=== PATIENT | male | born 1930 | race Caucasian/White ===

== ENCOUNTER → 2017-04-02 | Outpatient (CLI) | payer MEDICARE ==
[2017-04-02 08:54] LABS: HCT 49.9 % (39.0-53.0); HGB 16.4 gm/dL (13.0-17.5); MCH 28.3 pg (25.0-35.0); MCHC 32.9 g/dL (31.0-37.0); Mean Platelet Volume 8.3; Platelet Count 188 k/uL (150-450); RBC 5.81 m/uL (4.30-5.90); RDW 13.2 % (11.5-15.5); WBC 6.2 k/uL (3.8-10.6)
[2017-04-02 10:39] LABS: ALT 23 U/L (21-72); AST 25 U/L (17-59); Albumin 4.3 g/dL (3.5-5.0); Alkaline Phosphatase 55 U/L (38-126); Anion Gap 12 mmol/L; Blood Urea Nitrogen 21 mg/dL (9-20); Calcium 9.3 mg/dL (8.4-10.2); Carbon Dioxide 28 mmol/L (22-30); Chloride 102 mmol/L (98-107); Cholesterol 163 mg/dL (<200); Glucose 100 mg/dL (74-99); HDL Cholesterol 48 mg/dL (40-60); LDL Cholesterol,Calculated 102 mg/dL (0-99); Potassium 3.8 mmol/L (3.5-5.1); Sodium 142 mmol/L (137-145); Total Bilirubin 0.8 mg/dL (0.2-1.3); Triglycerides 66 mg/dL (<150)
[2017-04-02 10:52] LABS: T4, Free (Free Thyroxine) 0.96 ng/dL (0.78-2.19)
[2017-04-02 11:09] LABS: Prostate Specific Antigen <0.10 ng/mL (0.00-4.00)
== END | disposition home or self-care (01) ==
LOC: LABWHC1 08:03
PROVIDERS: ATTEND Internal Medicine
DX: Z00.00 Encounter for general adult medical examination without abnormal findings (principal); I11.9 Hypertensive heart disease without heart failure; E78.2 Mixed hyperlipidemia; C61 Malignant neoplasm of prostate; K21.0 Gastro-esophageal reflux disease with esophagitis
CPT/HCPCS: 36415; 80053; 80061; 84153; 84439; 84443; 85027

== ENCOUNTER 2017-09-10 17:39 | Emergency (ER) | payer MEDICARE ==
[2017-09-10 17:45] VITALS: TEMP 97.7
[2017-09-10] MEDS ORDERED: ONDANSETRON 4 MG/2 ML VIAL IVP STA (17:53)
[2017-09-10] MEDS ORDERED: SODIUM CHLORIDE 0.9% 1,000 ML IV STA (17:53)
[2017-09-10] MEDS ORDERED: FAMOTIDINE 20 MG/2 ML VIAL IV STA (17:54)
--- NOTE | 2017-09-10 17:56 | ED ---
General Adult HPI - General Chief complaint: Nausea/Vomiting/Diarrhea Stated complaint: vomiting, weakness Time Seen by Provider: 09/10/17 17:49 Source: patient, RN notes reviewed, Caregiver Mode of arrival: wheelchair Limitations: no limitations - History of Present Illness Initial comments: Patient is a pleasant 86-year-old male presenting to the emergency Department with nausea vomiting and diarrhea. Onset of symptoms was late last night/early this morning. Patient has nausea and has vomited approximately 6 times. Patient did have a few episodes of diarrhea that has now resolved. No abdominal pain. No fevers. Patient states he does feel somewhat lightheaded and fatigued. - Related Data Home Medications Medication Instructions Recorded Confirmed Simvastatin [Zocor] 40 mg PO HS 01/07/14 09/10/17 Triamterene-Hctz 37.5-25Mg 1 each PO DAILY 01/07/14 09/10/17 [Dyazide 37.5-25 Capsule] amLODIPine [Norvasc] 5 mg PO DAILY 01/07/14 09/10/17 Aspirin EC [Ecotrin Low Dose] 81 mg PO DAILY 09/10/17 09/10/17 Naproxen Sodium [Aleve] 220 mg PO DAILY 09/10/17 09/10/17 Previous Rx's Medication Instructions Recorded Ondansetron Odt [Zofran Odt] 4 mg PO Q8HR PRN #10 tab 09/10/17 Allergies Allergy/AdvReac Type Severity Reaction Status Date / Time No Known Allergies Allergy Verified 09/10/17 17:59 Review of Systems ROS Statement: Those systems with pertinent positive or pertinent negative responses have been documented in the HPI. ROS Other: All systems not noted in ROS Statement are negative. Constitutional: Denies: fever Eyes: Denies: eye pain ENT: Denies: ear pain Respiratory: Denies: cough Cardiovascular: Denies: chest pain Endocrine: Reports: fatigue Gastrointestinal: Reports: nausea, vomiting, diarrhea. Denies: abdominal pain Genitourinary: Denies: dysuria Musculoskeletal: Denies: back pain Skin: Denies: rash Neurological: Denies: headache Past Medical History Past Medical History: Hyperlipidemia, Hypertension Additional Past Medical History / Comment(s): Prostate CA History of Any Multi-Drug Resistant Organisms: Unobtainable Past Surgical History: No Surgical Hx Reported Past Psychological History: No Psychological Hx Reported Smoking Status: Never smoker Past Alcohol Use History: Daily Past Drug Use History: None Reported General Exam Limitations: no limitations General appearance: alert, in no apparent distress Head exam: Present: atraumatic Eye exam: Present: normal appearance, PERRL ENT exam: Present: normal oropharynx Neck exam: Present: normal inspection Respiratory exam: Present: normal lung sounds bilaterally Cardiovascular Exam: Present: irregular rhythm GI/Abdominal exam: Present: soft. Absent: tenderness Extremities exam: Present: normal inspection. Absent: pedal edema, calf tenderness Back exam: Present: normal inspection Neurological exam: Present: alert Psychiatric exam: Present: normal affect, normal mood Skin exam: Present: normal color Course Vital Signs 09/10/17 09/10/17 17:43 19:01 Temperature 97.7 F Pulse Rate 54 L 75 Respiratory 20 18 Rate Blood Pressure 187/103 181/93 O2 Sat by Pulse 97 98 Oximetry EKG Findings - EKG Comments: EKG Findings:: Sinus rhythm with frequent PVCs. Rate 78. [place] 182. QRS 94. QT 436. QTc 497. Left axis. LVH. No acute ST change. Medical Decision Making - Medical Decision Making Patient reevaluated and does feel much better. Patient is comfortable with discharge home. - Lab Data Result diagrams: 09/10/17 18:05 09/10/17 18:05 Lab Results 09/10/17 09/10/17 09/10/17 Range/Units 18:05 18:05 18:55 WBC 9.8 (3.8-10.6) k/uL RBC 6.15 H (4.30-5.90) m/uL Hgb 17.3 (13.0-17.5) gm/dL Hct 51.2 (39.0-53.0) % MCV 83.2 (80.0-100.0) fL MCH 28.2 (25.0-35.0) pg MCHC 33.8 (31.0-37.0) g/dL RDW 13.8 (11.5-15.5) % Plt Count 197 (150-450) k/uL Neutrophils % 84 % Lymphocytes % 11 % Monocytes % 4 % Eosinophils % 0 % Basophils % 0 % Neutrophils # 8.2 H (1.3-7.7) k/uL Lymphocytes # 1.1 (1.0-4.8) k/uL Monocytes # 0.4 (0-1.0) k/uL Eosinophils # 0.0 (0-0.7) k/uL Basophils # 0.0 (0-0.2) k/uL Sodium 141 (137-145) mmol/L Potassium 3.8 (3.5-5.1) mmol/L Chloride 103 (98-107) mmol/L Carbon Dioxide 23 (22-30) mmol/L Anion Gap 15 mmol/L BUN 26 H (9-20) mg/dL Creatinine 0.97 (0.66-1.25) mg/dL Est GFR (CKD-EPI)AfAm 83 (>60 ml/min/1.73 sqM) Est GFR (CKD-EPI)NonAf 72 (>60 ml/min/1.73 sqM) Glucose 134 H (74-99) mg/dL Calcium 9.5 (8.4-10.2) mg/dL Total Bilirubin 1.0 (0.2-1.3) mg/dL AST 28 (17-59) U/L ALT 32 (21-72) U/L Alkaline Phosphatase 54 (38-126) U/L Total Protein 7.2 (6.3-8.2) g/dL Albumin 4.6 (3.5-5.0) g/dL Urine Color Yellow Urine Appearance Clear (Clear) Urine pH 5.5 (5.0-8.0) Ur Specific [place] 1.021 (1.001-1.035) Urine Protein 1+ H (Negative) Urine Glucose (UA) Negative (Negative) Urine Blood Small H (Negative) Urine Nitrite Negative (Negative) Urine Bilirubin Negative (Negative) Urine Urobilinogen <2.0 (<2.0) mg/dL Ur Leukocyte Esterase Negative (Negative) Urine RBC 2 (0-5) /hpf Urine Bacteria Rare H (None) /hpf Urine Mucus Rare H (None) /hpf Disposition Clinical Impression: Vomiting Disposition: HOME SELF-CARE Condition: Stable Instructions: Acute Nausea and Vomiting (ED), Acute Diarrhea (ED) Additional Instructions: Please do follow-up with primary care physician in the next couple of days for recheck. Return for not tolerating fluids, uncontrolled vomiting, fevers, abdominal pain, worsening symptoms or other concerns. Prescriptions: Ondansetron Odt [Zofran Odt] 4 mg PO Q8HR PRN #10 tab PRN Reason: Nausea Is patient prescribed a controlled substance at d/c from ED?: No Referrals: Johan Zazueta MD [Primary Care Provider] - 1-2 days Time of Disposition: 19:27
[2017-09-10 18:29] LABS: Albumin 4.6 g/dL (3.5-5.0); Calcium 9.5 mg/dL (8.4-10.2); Potassium 3.8 mmol/L (3.5-5.1); Total Protein 7.2 g/dL (6.3-8.2)
[2017-09-10 18:31] LABS: Basophils % (A) 0 %; Eosinophils % (A) 0 %; HCT 51.2 % (39.0-53.0); HGB 17.3 gm/dL (13.0-17.5); Lymphocytes # (A) 1.1 k/uL (1.0-4.8); Lymphocytes % (A) 11 %; MCH 28.2 pg (25.0-35.0); MCHC 33.8 g/dL (31.0-37.0); MCV 83.2 fL (80.0-100.0); Mean Platelet Volume 8.4; Monocytes # (A) 0.4 k/uL (0-1.0); Monocytes % (A) 4 %; Neutrophils # (A) 8.2 k/uL (1.3-7.7); Neutrophils % (A) 84 %; Platelet Count 197 k/uL (150-450); RBC 6.15 m/uL (4.30-5.90); RDW 13.8 % (11.5-15.5); WBC 9.8 k/uL (3.8-10.6)
[2017-09-10 19:05] VITALS: BP 181/93; PULSE 75; RESP 18
[2017-09-10 19:14] LABS: Appearance,Urine Clear (Clear); Bacteria,Urine Rare /hpf; Bilirubin,Urine Negative (Negative); Blood,Urine Small (Negative); Color,Urine Yellow; Glucose,Urine (UA) Negative (Negative); Ketones,Urine 2+ (Negative); Leukocyte Esterase,Urine Negative (Negative); Mucus,Urine Rare /hpf; Nitrite,Urine Negative (Negative); PH, Urine 5.5 (5.0-8.0); Protein,Urine 1+ (Negative); RBC,Urine 2 /hpf (0-5); Specific Gravity,Urine 1.021 (1.001-1.035); Urobilinogen,Urine <2.0 mg/dL (<2.0)
== END 2017-09-10 19:44 | disposition home or self-care (01) ==
LOC: EC 17:39
DX: R11.2 Nausea with vomiting, unspecified (principal); R53.1 Weakness; R19.7 Diarrhea, unspecified; E78.5 Hyperlipidemia, unspecified; I10 Essential (primary) hypertension; Z85.46 Personal history of malignant neoplasm of prostate; Z79.1 Long term (current) use of non-steroidal anti-inflammatories (NSAID); Z79.82 Long term (current) use of aspirin; Z79.899 Other long term (current) drug therapy
CPT/HCPCS: 36415; 93005; 80053; 85025; 81001; 99285; 96374; 96375; 96361; J2405

== ENCOUNTER → 2018-07-18 | Outpatient (CLI) | payer MEDICARE ==
[2018-07-18 08:21] LABS: HCT 50.5 % (39.0-53.0); HGB 16.6 gm/dL (13.0-17.5); MCH 27.9 pg (25.0-35.0); MCHC 32.9 g/dL (31.0-37.0); Mean Platelet Volume 7.9; Platelet Count 217 k/uL (150-450); RBC 5.94 m/uL (4.30-5.90); RDW 14.5 % (11.5-15.5); WBC 7.2 k/uL (3.8-10.6)
[2018-07-18 16:05] LABS: Albumin 4.5 g/dL (3.80-4.90); Albumin/Globulin Ratio 2.25 (1.60-3.17); Anion Gap 8.6 mmol/L (4.00-12.00); Calcium 9.3 mg/dL (8.7-10.3); Carbon Dioxide 28.4 mmol/L (21.6-31.8); LDL Cholesterol,Calculated 108.8 mg/dL (0.0-131.0); Potassium 3.5 mmol/L (3.5-5.5); Total Bilirubin 0.8 mg/dL (0.2-1.2); Total Protein 6.5 g/dL (6.2-8.2); VLDL Calculation 15.2 mg/dL (5.00-40.00)
== END ==
LOC: LABWHC1 07:15
PROVIDERS: ATTEND Internal Medicine
DX: Z00.00 Encounter for general adult medical examination without abnormal findings (principal); I11.9 Hypertensive heart disease without heart failure; E78.2 Mixed hyperlipidemia; C61 Malignant neoplasm of prostate; K21.0 Gastro-esophageal reflux disease with esophagitis
CPT/HCPCS: 36415; 80053; 80061; 82272; 84153; 84439; 84443; 85027

== ENCOUNTER → 2019-02-17 | Outpatient (CLI) | payer MEDICARE ==
[2019-02-17 13:01] LABS: Basophils # (A) 0.1 k/uL (0-0.2); Basophils % (A) 1 %; Eosinophils # (A) 0.3 k/uL (0-0.7); Eosinophils % (A) 3 %; HCT 48.1 % (39.0-53.0); HGB 16.5 gm/dL (13.0-17.5); Lymphocytes # (A) 1.4 k/uL (1.0-4.8); Lymphocytes % (A) 18 %; MCH 29.3 pg (25.0-35.0); MCHC 34.4 g/dL (31.0-37.0); MCV 85.2 fL (80.0-100.0); Mean Platelet Volume 7.9; Monocytes # (A) 0.4 k/uL (0-1.0); Monocytes % (A) 5 %; Neutrophils # (A) 5.6 k/uL (1.3-7.7); Neutrophils % (A) 70 %; Platelet Count 243 k/uL (150-450); RBC 5.65 m/uL (4.30-5.90); RDW 12.6 % (11.5-15.5); WBC 7.9 k/uL (3.8-10.6)
--- NOTE | 2019-02-17 13:21 | XR ---
EXAMINATION TYPE: XR chest 2V DATE OF EXAM: 02/17/2019 COMPARISON: Chest x-ray January 31, 2016. HISTORY: Cough rule out bronchitis. TECHNIQUE: Frontal and lateral views of the chest are obtained. FINDINGS: There is new subtle perihilar peribronchial cuffing. Elevated and eventrated anterior aspe ct right hemidiaphragm redemonstrated. There is no focal air space opacity, pleural effusion, or pneu mothorax seen. The cardiac silhouette size is stable and mildly enlarged with atherosclerotic aorta. Advanced degenerative change left glenohumeral joint is again seen. IMPRESSION: Persistent mild cardiomegaly with new central perihilar peribronchial cuffing consistent with reactive airway disease possibly from a viral bronchiolitis.
== END | disposition home or self-care (01) ==
LOC: LABWHC1 12:10
PROVIDERS: ATTEND Internal Medicine
DX: I51.7 Cardiomegaly (principal); J06.9 Acute upper respiratory infection, unspecified
CPT/HCPCS: 36415; 71046; 85025

== ENCOUNTER → 2019-05-13 | Outpatient (CLI) | payer MEDICARE ==
--- NOTE | 2019-05-13 13:25 | XR ---
EXAMINATION TYPE: XR foot complete LT DATE OF EXAM: 05/13/2019 COMPARISON: NONE HISTORY: Pain TECHNIQUE: Three views are submitted. FINDINGS: The osseous structures are intact. There is no acute fracture or dislocation. Severe arthropathy o f the first MTP joint. There is destructive change of the distal phalanx of the third digit. Hammerto e deformities are seen. Hypertrophic changes involving the base of the fifth metatarsal. Soft tissue edema and vascular calcifications noted.. IMPRESSION: 1. No acute fracture or dislocation. If symptoms persist, follow-up exam in 7 to 10 days could be ob tained. 2. Destructive change distal phalanx third digit. Correlate for cellulitis with osteomyelitis. Otherw ise consider neoplasm..
== END | disposition home or self-care (01) ==
LOC: RADXRMAIN 12:58
PROVIDERS: ATTEND Podiatrist Foot Surgery
DX: M24.875 Other specific joint derangements left foot, not elsewhere classified (principal)

== ENCOUNTER → 2019-06-04 | Outpatient (CLI) | payer MEDICARE ==
[2019-06-04 09:10] LABS: Basophils # (A) 0.1 k/uL (0-0.2); Basophils % (A) 1 %; Eosinophils # (A) 0.2 k/uL (0-0.7); Eosinophils % (A) 3 %; HCT 49.4 % (39.0-53.0); HGB 16.4 gm/dL (13.0-17.5); Lymphocytes # (A) 1.8 k/uL (1.0-4.8); Lymphocytes % (A) 25 %; MCH 28.7 pg (25.0-35.0); MCHC 33.2 g/dL (31.0-37.0); MCV 86.5 fL (80.0-100.0); Mean Platelet Volume 8.2; Monocytes # (A) 0.4 k/uL (0-1.0); Monocytes % (A) 6 %; Neutrophils # (A) 4.5 k/uL (1.3-7.7); Neutrophils % (A) 62 %; Platelet Count 242 k/uL (150-450); RBC 5.71 m/uL (4.30-5.90); RDW 13.4 % (11.5-15.5); WBC 7.2 k/uL (3.8-10.6)
[2019-06-04 10:25] LABS: Erythrocyte Sedimentation Rate 2 mm/hr (0-15)
[2019-06-04 17:25] LABS: ALT 20 U/L (10-49); AST 25 U/L (14-35); Albumin/Globulin Ratio 1.83 (1.60-3.17); Alkaline Phosphatase 59 U/L (41-126); BUN/Creat Ratio 17.86 Ratio (12.00-20.00); C Reactive Protein <0.4 mg/dL (0.0-0.8); Calcium 9.4 mg/dL (8.7-10.3); Carbon Dioxide 26.4 mmol/L (21.6-31.8); Chloride 102 mmol/L (96-109); Chol/HDL Ratio 4.54; Cholesterol 186 mg/dL (0-200); Creatine Kinase 117 U/L (35-257); Globulin 2.4 g/dL (1.6-3.3); Glucose 94 mg/dL (70-110); LDL Cholesterol,Calculated 129.2 mg/dL (0.0-131.0); Non-African American GFR(CKD) 44.9 (60.0-200.0); Phosphorus 3.8 mg/dL (2.4-5.1); Potassium 4.1 mmol/L (3.5-5.5); Sodium 139 mmol/L (135-145); Total Bilirubin 0.8 mg/dL (0.3-1.2); Total Protein 6.8 g/dL (6.2-8.2)
== END | disposition home or self-care (01) ==
LOC: LABWHC1 08:17
PROVIDERS: ATTEND Internal Medicine
DX: I10 Essential (primary) hypertension (principal); J44.9 Chronic obstructive pulmonary disease, unspecified; N40.0 Benign prostatic hyperplasia without lower urinary tract symptoms; E87.8 Other disorders of electrolyte and fluid balance, not elsewhere classified; E78.5 Hyperlipidemia, unspecified; D64.9 Anemia, unspecified; E55.9 Vitamin D deficiency, unspecified
CPT/HCPCS: 36415; 80053; 80061; 82306; 82550; 83735; 84100; 84153; 85025; 85652; 86140

== ENCOUNTER → 2020-06-06 | Outpatient (CLI) | payer MEDICARE ==
[2020-06-06 16:43] LABS: Basophils # (A) 0.04 X 10*3/uL (0.00-0.10); Basophils % (A) 0.6 %; Eosinophils # (A) 0.37 X 10*3/uL (0.04-0.35); Eosinophils % (A) 5.3 %; HCT 49.9 % (39.6-50.0); HGB 16.1 g/dL (13.0-17.0); Lymphocytes # (A) 1.63 X 10*3/uL (0.90-5.00); Lymphocytes % (A) 23.5 %; MCH 28.8 pg (27.0-32.0); MCHC 32.3 g/dL (32.0-37.0); MCV 89.1 fL (80.0-97.0); Mean Platelet Volume 11.4 fL (9.5-12.2); Monocytes # (A) 0.54 X 10*3/uL (0.20-1.00); Monocytes % (A) 7.8 %; Neutrophils # (A) 4.33 X 10*3/uL (1.80-7.70); Neutrophils % (A) 62.5 %; Platelet Count 226 X 10*3/uL (140-440); RDW 13.6 % (11.5-14.5); WBC 6.93 X 10*3/uL (4.50-10.00)
[2020-06-06 17:51] LABS: Erythrocyte Sedimentation Rate 2 mm/Hr (0-20)
[2020-06-06 21:25] LABS: ALT 18 U/L (10-49); AST 26 U/L (14-35); African American GFR (CKD) 62.2 (60.0-200.0); Alkaline Phosphatase 50 U/L (41-126); BUN/Creat Ratio 24.17 Ratio (12.00-20.00); C Reactive Protein <0.4 mg/dL (0.0-0.8); Calcium 9.4 mg/dL (8.7-10.3); Carbon Dioxide 27.3 mmol/L (21.6-31.8); Chloride 107 mmol/L (96-109); Chol/HDL Ratio 3.88; Cholesterol 163 mg/dL (0-200); Creatine Kinase 213 U/L (35-257); Glucose 110 mg/dL (70-110); LDL Cholesterol,Calculated 107.2 mg/dL (0.0-131.0); Magnesium 2.2 mg/dL (1.5-2.4); Non-African American GFR(CKD) 53.7 (60.0-200.0); Phosphorus 3.3 mg/dL (2.4-5.1); Potassium 4.4 mmol/L (3.5-5.5); Prostate Specific Antigen <0.1 ng/mL (0.0-6.5); Sodium 140 mmol/L (135-145); Total Bilirubin 0.6 mg/dL (0.3-1.2); Total Protein 6.6 g/dL (6.2-8.2)
== END | disposition home or self-care (01) ==
LOC: LABWHC1 08:02
PROVIDERS: ATTEND Internal Medicine
DX: N40.0 Benign prostatic hyperplasia without lower urinary tract symptoms (principal); E78.5 Hyperlipidemia, unspecified; E21.3 Hyperparathyroidism, unspecified; E03.9 Hypothyroidism, unspecified; I12.9 Hypertensive chronic kidney disease with stage 1 through stage 4 chronic kidney disease, or unspecified chronic kidney disease; N18.30 Chronic kidney disease, stage 3 unspecified; M81.0 Age-related osteoporosis without current pathological fracture
CPT/HCPCS: 36415; 80053; 80061; 82272; 82550; 83735; 83970; 84100; 84153; 84443; 85025; 85652; 86140

== ENCOUNTER 2020-12-17 09:31 | Emergency (ER) | payer MEDICARE ==
[2020-12-17 09:43] VITALS: TEMP 99.2
[2020-12-17] MEDS ORDERED: SODIUM CHLORIDE 0.9% 500 ML 500 ML IV STA (10:33)
[2020-12-17] MEDS ORDERED: METOCLOPRAMIDE 5 MG/ML 2 ML VIAL IVP STA (10:34)
[2020-12-17 10:57] LABS: Basophils % (A) 0 %; Eosinophils # (A) 0.1 k/uL (0-0.7); Eosinophils % (A) 1 %; HCT 45.3 % (39.0-53.0); HGB 15.3 gm/dL (13.0-17.5); Lymphocytes # (A) 1.1 k/uL (1.0-4.8); Lymphocytes % (A) 11 %; MCH 29.6 pg (25.0-35.0); MCHC 33.8 g/dL (31.0-37.0); MCV 87.7 fL (80.0-100.0); Mean Platelet Volume 7.9; Monocytes # (A) 0.5 k/uL (0-1.0); Monocytes % (A) 5 %; Neutrophils # (A) 7.9 k/uL (1.3-7.7); Neutrophils % (A) 82 %; Platelet Count 238 k/uL (150-450); RBC 5.17 m/uL (4.30-5.90); RDW 12.4 % (11.5-15.5); WBC 9.7 k/uL (3.8-10.6)
[2020-12-17 11:10] LABS: INR 1.1 (<1.2); Prothrombin Time 11.3 sec (9.0-12.0)
[2020-12-17 11:12] LABS: Calcium 9.5 mg/dL (8.4-10.2); Potassium 3.7 mmol/L (3.5-5.1); Total Protein 6.7 g/dL (6.3-8.2)
[2020-12-17 11:32] LABS: Appearance,Urine Clear (Clear); Bilirubin,Urine Negative (Negative); Blood,Urine Negative (Negative); Color,Urine Yellow; Glucose,Urine (UA) Negative (Negative); Ketones,Urine Negative (Negative); Leukocyte Esterase,Urine Negative (Negative); Nitrite,Urine Negative (Negative); PH, Urine 5.5 (5.0-8.0); Protein,Urine Trace (Negative); Specific Gravity,Urine 1.024 (1.001-1.035); Urobilinogen,Urine <2.0 mg/dL (<2.0)
--- NOTE | 2020-12-17 11:41 | ED ---
Dizziness HPI - General Chief Complaint: Dizziness Stated Complaint: dizziness, vomiting Time Seen by Provider: 12/17/20 10:00 Source: patient, RN notes reviewed, old records reviewed Mode of arrival: ambulatory Limitations: no limitations - History of Present Illness Initial Comments: Patient is an 89-year-old male with history of hypertension, presenting to emergency Department with complaints of lightheadedness as well as nausea and vomiting for the past 2 days. Patient states that he receive the flu vaccine on Saturday, 6 days ago, and then a few days ago started having some lightheadedness or dizziness when he is standing. He states when he is laying down he feels fine. This has been continuous and less he is laying down. He denies any chest pain or shortness of breath, no fevers or chills. He has also been having some nausea and vomiting over the past 2 days, unable to tolerate any foods. He is able to keep down water. He denies any abdominal pain, no dysuria or hematuria. He denies any surgical abdominal history. Patient denies history of vertigo. He has no further complaints at this time. His vital signs are stable upon arrival. - Related Data Home Medications Medication Instructions Recorded Confirmed Simvastatin [Zocor] 40 mg PO HS 01/07/14 09/10/17 Triamterene-Hctz 37.5-25Mg 1 each PO DAILY 01/07/14 09/10/17 [Dyazide 37.5-25 Capsule] amLODIPine [Norvasc] 5 mg PO DAILY 01/07/14 09/10/17 Aspirin EC [Ecotrin Low Dose] 81 mg PO DAILY 09/10/17 09/10/17 Naproxen Sodium [Aleve] 220 mg PO DAILY 09/10/17 09/10/17 Previous Rx's Medication Instructions Recorded Ondansetron Odt [Zofran Odt] 4 mg PO Q8HR PRN #10 tab 09/10/17 Ondansetron Odt [Zofran Odt] 4 mg PO Q8HR PRN #10 tab 12/17/20 Allergies Allergy/AdvReac Type Severity Reaction Status Date / Time No Known Allergies Allergy Verified 09/10/17 17:59 Review of Systems ROS Statement: Those systems with pertinent positive or pertinent negative responses have been documented in the HPI. ROS Other: All systems not noted in ROS Statement are negative. Past Medical History Past Medical History: Hyperlipidemia, Hypertension Additional Past Medical History / Comment(s): Prostate CA History of Any Multi-Drug Resistant Organisms: Unobtainable Past Surgical History: No Surgical Hx Reported Past Psychological History: No Psychological Hx Reported Smoking Status: Never smoker Past Alcohol Use History: Daily Past Drug Use History: None Reported General Exam - General Exam Comments Initial Comments: GENERAL: Patient is well-developed and well-nourished. Patient is nontoxic and in no acute distress. HEAD: Atraumatic, normocephalic. EYES: Pupils equal round and reactive to light, extraocular movements intact, sclera anicteric, conjunctiva are normal. Eyelids were unremarkable. ENT: TMs normal, nares patent, oropharynx clear without exudates. Moist mucous membranes. NECK: Normal range of motion, supple without lymphadenopathy or JVD. LUNGS: Unlabored respirations. Breath sounds clear to auscultation bilaterally and equal. No wheezes rales or rhonchi. HEART: Regular rate and rhythm without murmurs, rubs or gallops. ABDOMEN: Soft, nontender, normoactive bowel sounds. No guarding, no rebound. No masses appreciated. : Deferred MUSCULOSKELETAL: Normal extremities with adequate strength and normal range of motion, no pitting or edema. No clubbing or cyanosis. NEUROLOGICAL: Patient is alert and oriented x 3. Motor and sensory are also intact. Cranial nerves II through XII grossly intact. Symmetrical smile. Normal speech, normal gait. PSYCH: Normal mood, normal affect. SKIN: Warm, Dry, normal turgor, no rashes or lesions noted. Limitations: no limitations Course Vital Signs 12/17/20 12/17/20 12/17/20 09:40 11:45 12:50 Temperature 99.2 F Pulse Rate 82 70 80 Respiratory 18 16 16 Rate Blood Pressure 169/86 167/91 157/80 O2 Sat by Pulse 98 98 98 Oximetry EKG Findings - EKG Comments: EKG Findings:: Normal sinus rhythm, possible left atrial enlargement, left axis deviation, no signs of an acute process. Ventricular rate 72, IN interval 174, QTC 404. Medical Decision Making - Medical Decision Making Patient is an 89-year-old male with history of hypertension, presenting with dizziness, nausea and vomiting over the last 2 days. No chest pain, no abdominal pains, no shortness of breath. His vital signs are stable, his exam is unremarkable. He is a healthy 89-year-old. EKG reveals no acute process, normal sinus rhythm. Patient's labs are unremarkable, no acute findings, troponin is normal, urine shows evidence of infection. Patient's vitals remained stable here in the ER. He has been asymptomatic. I discussed with patient his symptoms could be related to a possible GI bug versus food poisoning. Possibly a side effect of his vaccine. I recommended continuing with his fluids, will give him some Zofran tablets to go home with for any additional nausea. I recommended following up with his family doctor. He is agreeable to this plan of care. Return parameters were discussed with him and he verbalized understanding. Case discussed with Dr. Avila. - Lab Data Result diagrams: 12/17/20 10:45 12/17/20 10:45 Lab Results 12/17/20 12/17/20 12/17/20 Range/Units 10:45 10:45 10:45 WBC 9.7 (3.8-10.6) k/uL RBC 5.17 (4.30-5.90) m/uL Hgb 15.3 (13.0-17.5) gm/dL Hct 45.3 (39.0-53.0) % MCV 87.7 (80.0-100.0) fL MCH 29.6 (25.0-35.0) pg MCHC 33.8 (31.0-37.0) g/dL RDW 12.4 (11.5-15.5) % Plt Count 238 (150-450) k/uL MPV 7.9 Neutrophils % 82 % Lymphocytes % 11 % Monocytes % 5 % Eosinophils % 1 % Basophils % 0 % Neutrophils # 7.9 H (1.3-7.7) k/uL Lymphocytes # 1.1 (1.0-4.8) k/uL Monocytes # 0.5 (0-1.0) k/uL Eosinophils # 0.1 (0-0.7) k/uL Basophils # 0.0 (0-0.2) k/uL PT 11.3 (9.0-12.0) sec INR 1.1 (<1.2) Sodium (137-145) mmol/L Potassium (3.5-5.1) mmol/L Chloride (98-107) mmol/L Carbon Dioxide (22-30) mmol/L Anion Gap mmol/L BUN (9-20) mg/dL Creatinine (0.66-1.25) mg/dL Est GFR (CKD-EPI)AfAm (>60 ml/min/1.73 sqM) Est GFR (CKD-EPI)NonAf (>60 ml/min/1.73 sqM) Glucose (74-99) mg/dL Calcium (8.4-10.2) mg/dL Total Bilirubin (0.2-1.3) mg/dL AST (17-59) U/L ALT (4-49) U/L Alkaline Phosphatase (38-126) U/L Troponin I (0.000-0.034) ng/mL Total Protein (6.3-8.2) g/dL Albumin (3.5-5.0) g/dL Urine Color Yellow Urine Appearance Clear (Clear) Urine pH 5.5 (5.0-8.0) Ur Specific [place] 1.024 (1.001-1.035) Urine Protein Trace H (Negative) Urine Glucose (UA) Negative (Negative) Urine Ketones Negative (Negative) Urine Blood Negative (Negative) Urine Nitrite Negative (Negative) Urine Bilirubin Negative (Negative) Urine Urobilinogen <2.0 (<2.0) mg/dL Ur Leukocyte Esterase Negative (Negative) 12/17/20 12/17/20 Range/Units 10:45 10:45 WBC (3.8-10.6) k/uL RBC (4.30-5.90) m/uL Hgb (13.0-17.5) gm/dL Hct (39.0-53.0) % MCV (80.0-100.0) fL MCH (25.0-35.0) pg MCHC (31.0-37.0) g/dL RDW (11.5-15.5) % Plt Count (150-450) k/uL MPV Neutrophils % % Lymphocytes % % Monocytes % % Eosinophils % % Basophils % % Neutrophils # (1.3-7.7) k/uL Lymphocytes # (1.0-4.8) k/uL Monocytes # (0-1.0) k/uL Eosinophils # (0-0.7) k/uL Basophils # (0-0.2) k/uL PT (9.0-12.0) sec INR (<1.2) Sodium 137 (137-145) mmol/L Potassium 3.7 (3.5-5.1) mmol/L Chloride 104 (98-107) mmol/L Carbon Dioxide 22 (22-30) mmol/L Anion Gap 11 mmol/L BUN 31 H (9-20) mg/dL Creatinine 1.14 (0.66-1.25) mg/dL Est GFR (CKD-EPI)AfAm 66 (>60 ml/min/1.73 sqM) Est GFR (CKD-EPI)NonAf 57 (>60 ml/min/1.73 sqM) Glucose 127 H (74-99) mg/dL Calcium 9.5 (8.4-10.2) mg/dL Total Bilirubin 1.0 (0.2-1.3) mg/dL AST 29 (17-59) U/L ALT 18 (4-49) U/L Alkaline Phosphatase 49 (38-126) U/L Troponin I 0.027 (0.000-0.034) ng/mL Total Protein 6.7 (6.3-8.2) g/dL Albumin 4.0 (3.5-5.0) g/dL Urine Color Urine Appearance (Clear) Urine pH (5.0-8.0) Ur Specific [place] (1.001-1.035) Urine Protein (Negative) Urine Glucose (UA) (Negative) Urine Ketones (Negative) Urine Blood (Negative) Urine Nitrite (Negative) Urine Bilirubin (Negative) Urine Urobilinogen (<2.0) mg/dL Ur Leukocyte Esterase (Negative) Disposition Clinical Impression: Dehydration, Dizziness Disposition: HOME SELF-CARE Condition: Stable Instructions (If sedation given, give patient instructions): Dehydration (ED) Additional Instructions: Please return to the Emergency Department if symptoms worsen or any other concerns. Continue to increase your fluid intake, increase your diet as tolerated. May take Zofran every 8 hours for any additional nausea or vomiting. Please follow-up with your primary care physician. Prescriptions: Ondansetron Odt [Zofran Odt] 4 mg PO Q8HR PRN #10 tab PRN Reason: Nausea Is patient prescribed a controlled substance at d/c from ED?: No Referrals: Williams Montgomery MD [Primary Care Provider] - 1-2 days Time of Disposition: 12:32
[2020-12-17 11:48] VITALS: RESP 16
[2020-12-17 12:52] VITALS: BP 157/80; PULSE 80
== END 2020-12-17 12:59 | disposition home or self-care (01) ==
LOC: EC 09:31
DX: E86.0 Dehydration (principal); R42 Dizziness and giddiness; I10 Essential (primary) hypertension; E78.5 Hyperlipidemia, unspecified; Z79.82 Long term (current) use of aspirin; Z79.899 Other long term (current) drug therapy
CPT/HCPCS: 36415; 93005; 80053; 84484; 85025; 85610; 81003; 99284; 96374; 96361; J2765

== ENCOUNTER → 2021-03-01 | Outpatient (CLI) | payer MEDICARE ==
--- NOTE | 2021-03-01 23:47 | MR ---
EXAMINATION TYPE: MR iac wo/w con DATE OF EXAM: 03/01/2021 COMPARISON: None HISTORY: Bilateral hearing loss, vertigo CONTRAST: Standard multiplanar, multisequence MRI departmental protocol images were obtained without contrast a nd with 8 mL intravenous Gadavist gadolinium contrast. There is some cerebral cortical atrophy. There is no mass effect or midline shift. There is thinning of the corpus callosum. There is patchy increased signal in the periventricular white matter. There a re areas that measure up to 1 cm. Total numbers proximally 30 and most of these measure less than 5 m m. There is 4 mm area of increased signal in left side of the loree. The cerebellum appears intact. Sella turcica appears normal. Internal auditory canals appear normal. There is no evidence of cerebellopontine angle mass. Acoustic nerve and vestibular nerve appear normal. There is mild increased signal in the left mastoid sinus. The contrast images show no pathologic enhancement. There is normal enhancement of the venous sinuses . IMPRESSION: Cerebral atrophy. No evidence of a posterior fossa mass. Internal auditory canals appear normal. Ther e is evidence for some mild left-sided mastoiditis. Patchy white matter signal changes probably related to multifocal microvascular ischemia. There is al so small focus in the left side of the loree.
== END | disposition home or self-care (01) ==
LOC: RADMRIMAIN 09:22
PROVIDERS: ATTEND Otolaryngology
DX: H91.90 Unspecified hearing loss, unspecified ear (principal); H93.19 Tinnitus, unspecified ear; G31.9 Degenerative disease of nervous system, unspecified
CPT/HCPCS: 70553; A9585

== ENCOUNTER → 2021-06-26 | Outpatient (CLI) | payer MEDICARE ==
--- NOTE | 2021-06-27 18:09 | CA ---
Transthoracic Echo Report Name: Dawood Nickerson Age: 89 Gender: M : 1930 Exam Date: 06/26/2021 12:08 Exam Location: [facility] Ht (in): 67 Wt (lb): 190 Ordering Physician: Williams Montgomery MD Attending/Referring Phys: Manager Web Maddy Moses RDCS Procedure CPT: Indications: I10 HYPERTENSION I95.9 Abnormal EKG Cardiac Hx: Technical Quality: Good Contrast 1: Total Dose (mL): Contrast 2: Total Dose (mL): MEASUREMENTS (Male / Female) Normal Values 2D ECHO LV Diastolic Diameter PLAX 4.0 cm 4.2 - 5.9 / 3.9 - 5.3 cm LV Systolic Diameter PLAX 1.8 cm IVS Diastolic Thickness 1.5 cm 0.6 - 1.0 / 0.6 - 0.9 cm LVPW Diastolic Thickness 1.2 cm 0.6 - 1.0 / 0.6 - 0.9 cm LV Relative Wall Thickness 0.7 RV Internal Dim ED PLAX 2.8 cm LA Volume 33.5 cm 18 - 58 / 22 - 52 cm M-MODE Aortic Root Diameter MM 3.1 cm LA Systolic Diameter MM 3.3 cm LA Ao Ratio MM 1.1 MV E Point Septal Separation 1.4 cm AV Cusp Separation MM 2.1 cm DOPPLER AV Peak Velocity 124.9 cm/s AV Peak Gradient 6.2 mmHg AI Peak Velocity 147.7 cm/s AI Peak Gradient 8.7 mmHg AI Pressure Half Time 470.8 ms MV Area PHT 2.3 cm Mitral E Point Velocity 49.1 cm/s Mitral A Point Velocity 103.0 cm/s Mitral E to A Ratio 0.5 MV Deceleration Time 331.5 ms MV E' Velocity 10.2 cm/s Mitral E to MV E' Ratio 4.8 TR Peak Velocity 188.8 cm/s TR Peak Gradient 14.3 mmHg Right Ventricular Systolic Press 19.3 mmHg FINDINGS Left Ventricle Normal LV size and systolic function with [id number] concentric LVH. Left ventricular ejection fraction is estimated at 55-60 %. Right Ventricle The right ventricle is normal in size and function. Right Atrium The right atrium is normal in size. Left Atrium The left atrium is normal in size. Mitral Valve Structurally normal mitral valve without significant stenosis or prolapse. There is a trace mitral regurgitation. Aortic Valve Structurally normal aortic valve without significant sclerosis or stenosis. There is mild aortic regurgitation. Focal thickening of the aortic valve cusps. Tricuspid Valve Structurally normal tricuspid valve without significant stenosis. Pulmonary artery systolic pressure is normal. Trace tricuspid regurgitation. Pulmonic Valve Structurally normal pulmonic valve without significant stenosis. There is no pulmonic regurgitation. Pericardium Normal pericardium without effusion. Aorta Normal aortic root dimension. CONCLUSIONS Normal LV size and systolic function with mild to moderate concentric LVH. Mitral annular calcification and aortic sclerosis with mild mitral and tricuspid insufficiency. No pericardial effusion Previewed by: Dr. Nelson Webster MD (Electronically Signed) Final Date: 27 June 2021 18:08
== END | disposition home or self-care (01) ==
LOC: RADECHMAIN 12:02
PROVIDERS: ATTEND Internal Medicine
DX: I10 Essential (primary) hypertension (principal); R94.31 Abnormal electrocardiogram [ECG] [EKG]
CPT/HCPCS: 93306